=== PATIENT | male | born 1995 ===

== ENCOUNTER 2017-12-29 10:55 | Emergency (ER) | payer OTHER ==
--- NOTE | 2017-12-29 10:58 | UC ---
Laceration HPI - HPI Summary HPI Summary: 22 yo male presents for suture removal. He tells me that 2 weeks ago in [facility] he had a mole removed from his upper back by a nitrocellulose operator and they advised him to have the sutures out in 2 weeks. He has had no issues with the site such as bleeding, pain, or drainage. No fever or chills. - History Of Current Complaint Stated Complaint: STITCH REMOVAL Time Seen by Provider: 12/29/17 10:57 Hx Obtained From: Patient Laceration Location: Back - Allergies/Home Medications Allergies/Adverse Reactions: Allergies Allergy/AdvReac Type Severity Reaction Status Date / Time No Known Allergies Allergy Verified 01/16/17 23:48 PMH/Surg Hx/FS Hx/Imm Hx - Additional Past Medical History Additional PMH: None - Surgical History Surgical History: None - Family History Known Family History: Negative: Diabetes - Social History Occupation: Student Lives: With Family Alcohol Use: Rare Substance Use Type: None Smoking Status (MU): Never Smoked Tobacco Review of Systems Constitutional: Negative Skin: Other - Sutures in place upper back Respiratory: Negative Cardiovascular: Negative Gastrointestinal: Negative Neurovascular: Negative Neurological: Negative Psychological: Negative All Other Systems Reviewed And Are Negative: Yes Physical Exam - Summary Physical Exam Summary: GENERAL: NAD. WDWN. No pain distress. SKIN: Left upper back: 2.0cm surgical incision closed and well approximated with one running suture. No erythema, discharge, or bleeding. NECK: Supple. Nontender. No lymphadenopathy. CHEST: No accessory muscle use. Breathing comfortably and in no distress. CV: Pulses intact. Cap refill <2seconds NEURO: Alert. PSYCH: Age appropriate behavior. Triage Information Reviewed: Yes Vital Signs: Vital Signs: Temp Pulse Resp BP Pulse Ox 98.7 F 98 15 119/80 98 12/29/17 11:09 12/29/17 11:09 12/29/17 11:09 12/29/17 11:09 12/29/17 11:09 Laceration Course/Dx - Course/Dx Course Of Treatment: Suture removed. - Differential Dx - Laceration/Wound Provider Diagnoses: Suture removal Discharge - Sign-Out/Discharge Documenting (check all that apply): Patient Departure All imaging exams completed and their final reports reviewed: No Studies - Discharge Plan Condition: Stable Disposition: HOME Patient Education Materials: Stitches Removal (ED) Referrals: No Primary Care Phys,NOPCP [Primary Care Provider] - Additional Instructions: If you develop a fever, shortness of breath, chest pain, new or worsening symptoms - please call your PCP or go to the ED. - Billing Disposition and Condition Condition: STABLE Disposition: Home
[2017-12-29 11:15] VITALS: BP 119/80
== END 2017-12-29 11:19 | disposition home or self-care (01) ==
LOC: UCEAST 10:55
DX: Z48.817 Encounter for surgical aftercare following surgery on the skin and subcutaneous tissue (principal)
CPT/HCPCS: 99211; G0463